=== PATIENT | female | born 1970 | race Hispanic/Latino ===

== ENCOUNTER 2020-08-28 02:19 | Emergency (ER) | payer OTHER ==
[~2020-08-28] VITALS: Ht 157.5 cm; Wt 81.6 kg
[2020-08-28 02:25] VITALS: BP 133/90
[2020-08-28 03:44] VITALS: BP 129/92
[2020-08-28 04:35] VITALS: BP 125/84
== END 2020-08-28 04:48 ==
LOC: EDH 02:19
DX: S39.012A Strain of muscle, fascia and tendon of lower back, initial encounter (principal); L98.9 Disorder of the skin and subcutaneous tissue, unspecified; X58.XXXA Exposure to other specified factors, initial encounter; Y93.89 Activity, other specified; Y92.89 Other specified places as the place of occurrence of the external cause; Y99.8 Other external cause status